=== PATIENT | male | born 1990 | race African-American/Black ===

== ENCOUNTER 2024-04-26 17:53 | Emergency (ER) | payer BC, SELFPAY ==
[2024-04-26] MEDS ORDERED: Ipratropium/Albuterol 3 ML NEB ONE (18:11)
[2024-04-26] MEDS ORDERED: Albuterol 2.5 MG (3 mL) NEB ONE (18:23)
[2024-04-26] MEDS ORDERED: predniSONE 20 MG TAB ONE (18:43)
[2024-04-26 18:48] LABS: SARS-CoV-2 E Target Negative; SARS-CoV-2 N2 Target Negative; SARS-CoV-2 NAA Rapid Test Not Detected (NotDetected); SARS-CoV-2 RdRP gene Negative
== END 2024-04-26 19:00 | disposition home or self-care (01) ==
LOC: CSHERS 17:53
DX: B34.9 Viral infection, unspecified (principal); J44.1 Chronic obstructive pulmonary disease with (acute) exacerbation; F17.210 Nicotine dependence, cigarettes, uncomplicated
CPT/HCPCS: 71045; 93005; 94640; J7512; J7611; J7620; U0002